=== PATIENT | male | born 1975 | race Caucasian/White ===

== ENCOUNTER 2019-01-20 20:22 | Emergency (ER) | payer SELFPAY ==
[~2019-01-20] VITALS: Ht 167.6 cm; Wt 81.6 kg
[2019-01-20 20:33] VITALS: BP 125/81
--- NOTE | 2019-01-20 20:35 | NUR ---
TO LOBBY A/W BED AMBULATORY
--- NOTE | 2019-01-20 21:36 | NUR ---
PT AMBULATED TO BED 07.
[2019-01-20 21:50] VITALS: BP 125/81
--- NOTE | 2019-01-20 21:50 | NUR ---
PATIENT LEFT WITHOUT BEING SEEN BY DR. BOWLING. NO FURTHER CARE PROVIDED FOR PATIENT.
--- NOTE | 2019-01-20 21:50 | NUR ---
PT AMBULATED OUT OF ER, LWBS.
== END 2019-01-20 21:50 | disposition left against medical advice (07) ==
LOC: MED 20:22
DX: R21 Rash and other nonspecific skin eruption (principal); Z53.21 Procedure and treatment not carried out due to patient leaving prior to being seen by health care provider